=== PATIENT | female | born 1970 | race Two or more races ===

== ENCOUNTER 2024-05-16 10:35 | Day surgery (SDC) | payer BC, SELFPAY ==
--- NOTE | 2024-05-15 14:01 | PTCARENOTE ---
Unable to obtain ECG tracing from outside facility- ECG report scanned- reviewed by Dr. Lombardi- no additional interventions required.
[2024-05-16] VITALS (10 sets, daily range): BP systolic 105–128; BP diastolic 56–91; BMI 32.5
[2024-05-16] MEDS: NORMOSOL-R/PLASMALYTE-A 1000 IV (11:11)
[2024-05-16] MEDS: HEPARIN 5000 UNITS SC (11:19)
[2024-05-16] MEDS: DEMEROL 12.5 MG IV ×2 (16:09→16:20)
--- NOTE | 2024-05-16 16:33 | OR.RPT ---
Operative Report
Operative Report
Date of surgery: 05/16/2024
Surgeon: CONNER Cunningham MD
Preoperative diagnosis: Lipedema
Postoperative diagnosis: Same
Procedure: Suction assisted lipectomy to bilateral lower extremities
Anesthesia: General
EBL: 150 cc
Complications: None
Indications for procedure: Patient is a 53-year-old female with a working diagnosis of lipedema. She had previously undergone weight loss of approximately 200 pounds and had multiple body contouring procedures including bilateral thigh lift, prior
liposuction, bilateral brachioplasty and circumferential lower body lift as well as breast reduction. This was approximately 25 years ago and since then she noticed progressive painful accumulation of adipose in the bilateral lower extremities and
upper extremities as well as her trunk. She has a family history of lipedema and was given a formal diagnosis by medical doctor from physical medicine and rehabilitation. She met the requirements for medical necessity for insurance coverage of
treatment for her lipedema with liposuction and skin and adipose excision as indicated. A plan was made to address the lower extremities first. It was understood that this would be a treatment protocol requiring multiple stages to minimize
operative time, total lipo aspirate volume and risk of complications. Risk of the procedure reviewed at length including contour irregularities, skin irregularities and scarring, edema, recurrence, poor cosmetic outcome, skin redundancy. With
large volume liposuction, fluid shifts are possible. She understood these risks and desired to proceed
Procedure in detail: Patient was identified the preoperative area and the surgical site was confirmed to be the bilateral lower extremities. The relative areas of symptomatic adipose accumulation were marked out with the patient. For this stage
the procedure this included the anterior and posterior aspects of the bilateral lower extremities. All questions were answered and consents were confirmed. Patient was taken back to the operating room and intubated in the supine position. She was
then placed prone to allow for treatment of her posterior surfaces. Patient was prepped and draped in the usual sterile fashion using ChloraPrep solution. A timeout for patient safety was performed was confirmed that preoperative antibiotics have
been administered and subcu heparin had been administered and the abdomen prior to induction. SCDs were worn during induction. The procedure began with a series of poke holes for cannula access. 2L Tumescent solution consisting of 1 L of normal
saline with dilute lidocaine and epinephrine were evenly distributed over the bilateral anterior and posterior lower extremities. The remainder of the tumescent consisting of 1 L normal saline with 1 amp of epi. A total of 2.5 L of tumescent was
placed into the posterior surfaces of the lower extremities. Separation was then performed off suction. Throughout the procedure the SAF E protocol for liposuction was followed. After /pretunneling, aspiration commenced using a
combination of 4 and 5 mm cannulas. Focus was taken on the areas below the knees first. Endpoint for liposuction was pinch test with adequate reduction in volume. We proceeded to work her way up the legs ensuring adequate correction. Following
this, equilibration was performed off suction to prevent contour irregularities. The poke holes were closed with 5-0 fast and the patient was flipped to supine. She was reprepped and draped and the procedure commenced over the anterior lower
extremities. 2.5 L of tumescent was distributed over the anterior surface of the lower extremities in the SAF E protocol was followed once again. The tissue was or pretunneled off suction, followed by lipo aspiration and then fat
equilibration. The total Lipo aspirate was capped at approximately 5 L to minimize risks of fluid shifts and electrolyte imbalance. At the conclusion the case, the patient tolerated the procedure well and was performed out complication. She was
extubated taken the PACU for further care. ABD pads were placed over the sutured vocals and the bilateral lower extremities were wrapped with Dante bandages from the foot to the groin. Instructions were provided to shower after 24 hours and then
begin compression garments. All counts were correct.
--- NOTE | 2024-05-16 16:33 | W.IMMPOSTOP ---
Surgical Immed Post Op Note
-
Primary Surgeon: CONNER Cunningham MD
Assisting Surgeon:
Pre-op Diagnosis: Lipedema
Post-op Diagnosis: Same
Procedure Performed: Suction assisted lipectomy to bilateral lower extremities
Anesthesia Type: General
Specimen / Cultures: None
Estimated Blood Loss: 150 cc
Complications: None
Operative Findings: As expected
[2024-05-16] MEDS: DILAUDID 0.25 MG IV (16:49)
== END 2024-05-16 18:15 | disposition home or self-care (01) ==
LOC: SDS 10:35
PROVIDERS: ATTENDING PHYSICIAN Surgery Plastic and Reconstructive Surgery
DX: E88.1 Lipodystrophy, not elsewhere classified (principal); R60.9 Edema, unspecified; E88.2 Lipomatosis, not elsewhere classified; Z83.49 Family history of other endocrine, nutritional and metabolic diseases
CPT/HCPCS: 15879

== ENCOUNTER → 2024-05-21 15:21 | Outpatient (REF) | payer BC, SELFPAY | LOC: RAD 15:21 | PROVIDERS: ATTENDING PHYSICIAN Surgery Plastic and Reconstructive Surgery; FAMILY PHYSICIAN Family Medicine | DX: R60.0 Localized edema (principal) | CPT/HCPCS: 93970 ==

== ENCOUNTER 2024-09-05 06:18 | Day surgery (SDC) | payer BC, SELFPAY ==
[2024-09-05] VITALS (9 sets, daily range): BP systolic 0–127; BP diastolic 65–74; BMI 31.2
[2024-09-05] MEDS: NORMOSOL-R/PLASMALYTE-A 1000 IV (09:45)
--- NOTE | 2024-09-05 16:10 | W.IMMPOSTOP ---
Surgical Immed Post Op Note
-
Primary Surgeon: CONNER Cunningham MD
Assisting Surgeon: None
Pre-op Diagnosis: Lipedema
Post-op Diagnosis: Same
Procedure Performed: Suction assisted lipectomy lower extremities, suction assisted lipectomy of trunk, bilateral excision of excessive skin and subcutaneous tissues lower extremities
Anesthesia Type: General
Specimen / Cultures: None
Estimated Blood Loss: 30 cc
Complications: None
Operative Findings: As expected
--- NOTE | 2024-09-05 16:10 | OR.RPT ---
Operative Report
Operative Report
Date of surgery: 09/05/2024
Surgeon: CONNER Cunningham MD
Preoperative diagnosis: Lipedema
Postoperative diagnosis: Same
Procedure:
1. Suction assisted lipectomy lower extremity, bilateral
2. Suction assisted lipectomy of trunk, bilateral
3. Excision of skin and excess subcutaneous tissues, lower extremity, bilateral
Anesthesia: General
Complications: None
EBL: 30 cc
Indications for procedure: Patient is a 54-year-old female with a working diagnosis of lipedema. She has sought multiple consultations and medical care to establish the diagnosis. She started her process of treating the lipedema via serial suction
assisted lipectomy procedures in a staged fashion. She has previously undergone treatment of her bilateral lower extremities below the knee and in the posterior upper thigh. She had reached her limit for high-volume fat grafting requiring staged
treatment of the remainder of her legs. The diseased fat is also present in her bilateral lower trunk. Given the anticipated skin access created by the treatment, a plan was made for excision of redundant skin of the medial thighs. Prior Auth was
obtained and consents were confirmed. Risks include hematoma, DVT, skin contour irregularities, recurrent skin laxity, bleeding, abnormal scarring. Damage to nerves and other structures also discussed. She consented accordingly.
Procedure in detail: Patient was identified preoperatively and the surgical site was confirmed to be the bilateral lower extremities bilateral trunk. Patient was marked in the upright position and all questions were answered. Consents were
confirmed the patient taken back the operating placed upon the table. Anesthesia was induced and the patient was prepped and draped in the usual sterile fashion using ChloraPrep solution. A timeout for patient safety was performed was confirmed
that preoperative antibiotics had been administered and bilateral SCDs were placed. The procedure began tumescent solution consisting of dilute lidocaine with epinephrine and 1 L normal saline. This was distributed over the areas for treatment
localized to the lateral anterior and medial thighs as well as the bilateral lower trunk and anterior trunk. Appropriate amount of time was waited and then a SAF E liposuction protocol was followed. The total amount of Lipo aspirate was determined
based on clinical endpoint of skin pinch and not to exceed 5 L to prevent fluid shifts. Suction assisted lipectomy of the bilateral lower extremities was then performed through a series of protocols with a 15 blade. Attention was then drawn to the
trunk where suction assisted lipectomy of the trunk, bilateral was performed. A notable amount of skin laxity and excess tissue was present following the treatment of the bilateral lower extremities. As such a decision was made to commence with
excision of skin and excess subcutaneous tissues, lower extremity, bilateral. This was done in the standard medial thigh lift fashion. The patient had prior scars these were excised with the redundant tissue. Dissection continued Bovie
electrocautery and meticulous hemostasis was ensured. 15 [place] drains were left in the subcutaneous space prior to closure. Closure was performed with a series of 3-0 Monocryl's, INSORB staple, 4-0 Monocryl superficially. Patient tolerated
the procedure well, was performed out complication, all counts were correct at the end the case. She was extubated taken the PACU further care. The bilateral lower extremities were placed in compressive wraps.
[2024-09-05] MEDS: DILAUDID 0.5 MG IV ×2 (16:11→16:23)
[2024-09-05] MEDS: ROXICODONE 5 MG PO (17:19)
== END 2024-09-05 17:38 | disposition home or self-care (01) ==
LOC: SDS 06:18
PROVIDERS: ATTENDING PHYSICIAN Surgery Plastic and Reconstructive Surgery
DX: E88.1 Lipodystrophy, not elsewhere classified (principal); E88.2 Lipomatosis, not elsewhere classified
CPT/HCPCS: 15877; 15879; C1729

== ENCOUNTER 2024-11-21 06:15 | Day surgery (SDC) | payer BC, SELFPAY ==
[2024-11-21] VITALS (12 sets, daily range): BP systolic 108–134; BP diastolic 52–73; BMI 31.6
[2024-11-21] MEDS: NORMOSOL-R/PLASMALYTE-A 1000 IV (06:59)
[2024-11-21] MEDS: TYLENOL 1000 MG PO (07:01)
--- NOTE | 2024-11-21 11:56 | W.IMMPOSTOP ---
Surgical Immed Post Op Note
-
Primary Surgeon: CONNER Cunningham MD
Assisting Surgeon:
Pre-op Diagnosis: Lipedema
Post-op Diagnosis: Same
Procedure Performed: Bilateral excision of excess skin and subcutaneous tissue arm and forearm, bilateral suction assisted lipectomy of upper extremites
Anesthesia Type: GA
Specimen / Cultures: None
Estimated Blood Loss: 30cc
Complications: None
Operative Findings: As expected
--- NOTE | 2024-11-21 11:59 | OR.RPT ---
Operative Report
Operative Report
Date of surgery: 11/21/2024
Surgeon: CONNER Cunningham MD
Preoperative diagnosis:
1. Lipedema
2. Abnormal fat metabolism
3. Excess skin and subcutaneous tissue
Postoperative diagnosis: Same
Procedure:
1. Excision of skin and subcutaneous tissues bilateral upper arms
2. Excision of skin and subcutaneous tissues bilateral forearms
3. Suction assisted lipectomy of bilateral upper arms and forearms
Anesthesia: General
EBL: 30 cc
Specimens: None
Complications: None
Indication for procedure: Patient is a 54-year-old female with a working diagnosis of lipedema. She has undergone prior assessments with physical medicine and rehabilitation. She has previously tolerated prior suction assisted lipectomy and
excision of redundant skin and subcutaneous tissues. She was left with affected upper extremities having already treated the lower extremities. This involved painful fat in a circumferential distribution around the upper arm and into the forearm.
As a consequence there is excess skin subcutaneous tissues as well. As such a plan was made for suction assisted lipectomy of the bilateral upper extremities. This will be paired with excision of skin and subcutaneous tissues of the upper arm and
into the forearm. The scar burden was made aware to the patient, which was no surprise that she had a prior scar in the area. Risk of the procedure include contour abnormalities, fat necrosis, wound dehiscence and skin loss. She understood these
risk desire to proceed
Procedure in detail: Patient was identified preoperatively and the surgical site was confirmed to be the bilateral upper arms. The prior scars were marked for excision as well as a tentative marking for redundant skin following suction assisted
lipectomy. All questions were answered and consents were confirmed. Patient was taken back to the op room placed upon table. Anesthesia was induced and the patient was prepped and draped in usual sterile fashion using ChloraPrep solution.
Timeout for patient safety was performed was confirmed that preoperative antibiotics had been administered and bilateral SCDs were in place. Procedure began with the injection 1% lidocaine with epinephrine in the proposed protocols for suction
assisted lipectomy. Tumescent solution consisting 1% sent lidocaine 50 cc and 1 amp of epi and 1 L normal saline was distributed in the subcutaneous tissues of bilateral upper extremities. A total of 2 L was used. Following an SAF E liposuction
protocol, suction assisted lipectomy was first performed just by off suction followed by aspiration and then fat equilibration. Suction assisted lipectomy occurred in the upper arm as well as the forearm. A total of 1 L was taken off of
each side approximately. Following this, the prior scar was marked for excision. This was performed first anteriorly followed by dissection in the lipo dissected plane to protect important neurovascular structures deep near the fascia. The amount
of redundant tissue was then tailor tacked to ensure tension-free closure. As such, excision of skin and subcutaneous tissues of the bilateral upper arms and bilateral forearms was performed using Bovie electrocautery. This was first performed in
the forearm and then followed up into the arm slightly into the lateral chest wall. Meticulous hemostasis was ensured. There was not appreciable space and no drain was left. The wound was closed in layers using an INSORB stapler followed by
3-0 Monocryl sutures. Prineo dressing was applied bilaterally. Patient tolerated the procedure well and was performed out complication. All counts were correct at the end the case.
[2024-11-21] MEDS: DILAUDID 0.25 MG IV ×2 (12:35→13:02)
== END 2024-11-21 14:17 | disposition home or self-care (01) ==
LOC: SDS 06:15
PROVIDERS: ATTENDING PHYSICIAN Surgery Plastic and Reconstructive Surgery
DX: E88.2 Lipomatosis, not elsewhere classified (principal); E71.30 Disorder of fatty-acid metabolism, unspecified; L98.7 Excessive and redundant skin and subcutaneous tissue
CPT/HCPCS: 15878; C1729

== ENCOUNTER 2025-03-06 05:59 | Day surgery (SDC) | payer BC, SELFPAY ==
[2025-02-18 08:28] VITALS: BMI 30.3
[2025-02-18 11:55] LABS: Hematocrit 37.2 % (37.0-47.0); Hemoglobin 12.4 g/dL (12.0-16.0); Mean Corp Hgb Conc. 33.3 g/dL (33.0-37.0); Mean Corpuscular Volume 90.7 fL (81.0-99.0); Nucleated Red Blood Cells % 0 %; Platelet Count 282 10^3/uL (130-400); Red Cell Dist. Width 12.7 % (11.5-14.5)
[2025-02-18 12:29] LABS: ALT (SGPT) 16 U/L (0-35); AST (SGOT) 24 U/L (14-36); Albumin 3.9 g/dl (3.5-5.0); Alkaline Phosphatase 46 U/L (38-126); Blood Urea Nitrogen 11 mg/dl (7-17); Calcium 8.8 mg/dl (8.4-10.2); Carbon Dioxide 29 mmol/L (22-30); Chloride 104 mmol/L (98-107); Estimated Creatinine Clearance 118 ml/min; Glucose 78 mg/dl (70-99); Potassium 4.3 mmol/L (3.5-5.1); Sodium 136 mmol/L (135-145); Total Protein 6.2 g/dl (6.3-8.2); eGFR > 60.00
[2025-03-06] VITALS (10 sets, daily range): BP systolic 108–135; BP diastolic 67–86; BMI 30.3
[2025-03-06] MEDS: TYLENOL 1000 MG PO (06:45)
[2025-03-06] MEDS: NORMOSOL-R/PLASMALYTE-A 1000 IV (06:45)
[2025-03-06] MEDS: SUBLIMAZE 25 MCG IV (11:58)
--- NOTE | 2025-03-06 12:46 | W.IMMPOSTOP ---
Surgical Immed Post Op Note
-
Primary Surgeon: CONNER Cunningham MD
Assisting Surgeon:
Pre-op Diagnosis: Lipedema
Post-op Diagnosis: Same
Procedure Performed: Suction assisted lipectomy of trunk
Anesthesia Type: General
Specimen / Cultures: None
Estimated Blood Loss: 30 cc
Complications: None
Operative Findings: As expected
--- NOTE | 2025-03-06 12:46 | OR.RPT ---
Operative Report
Operative Report
Date of surgery: 03/06/2025
Surgeon: CONNER Cunningham MD
Preoperative diagnosis:
1. Lipedema
2. Lipomatosis, unspecified
3. Metabolic derangement of fat
Postoperative diagnosis: Same
Procedure:
1. Suction assisted lipectomy of trunk, circumferential
Anesthesia: General
Complications: None
EBL: 30 cc
Indications for procedure: Patient is a 54-year-old female well-known to [facility] for a diagnosis of [facility]. She was referred to [facility] for surgical management. She had failed other management forms. Diagnosis provided by physical medicine and
rehabilitation provider. In pursuit of treatment for her abnormal distribution of fat in the lower extremities upper extremities and trunk, she was referred by her insurance company to [facility] for consideration of surgical management. Prior
authorizations were obtained and she was approved for suction assisted lipectomy of the bilateral lower extremities, upper extremities, and trunk. A plan was made for staging these procedures to avoid the risk of high-volume lipo suction. As such
she previously treated her bilateral lower extremities and her bilateral upper extremities. She returned for treatment of her trunk. Her symptomatic areas included the bilateral posterior trunk bilateral flanks and anterior abdomen. Symptoms
included painful nodular fat, easy bruising, overwhelming sense of heaviness. She understood the risks of suction assisted lipectomy as she had previously undergone this procedure. These risk include but are not limited to damage to deeper
structures, skin contour irregularity, skin excess, fibrosis, recurrence, surgically induced edema, bleeding, infection, need for repeat procedure. We also discussed the risk of DVT and PE. She expressed understanding of th these risks and desired
to proceed.
Procedure in detail: Patient was identified preoperatively and the surgical site was confirmed to be the circumferential trunk. Consents were confirmed and all questions were answered. The relative areas of fat distribution were marked out
accordingly. Conversation was had about sparing the anterior abdomen for concerns over skin excess that may result. She elected to proceed with treatment of the anterior abdomen as well. She was taken back to the operating room and intubated
supine. She was then placed in the prone position with appropriate padding. She was then prepped and draped in the usual sterile fashion using ChloraPrep solution. Timeout for patient safety was performed was confirmed that preoperative
antibiotics have been administered and bilateral SCDs were in place. Procedure began with the injection of tumescent solution consisting of 1 L normal saline with 1% lidocaine and 1 amp of epinephrine. To stay within recommended lidocaine dosage,
additional tumescent was provided with 1 L of normal saline with 1 amp of epi. A total of 3 L was distributed over the posterior back. A SAF E liposuction protocol was followed. This consisted of tumescent followed by separation followed by
aspiration and then fat equilibration. This was performed with 5 mm 4 mm cannulas in the subcutaneous plane. Following adequate contour, a total of approximately 2.5 L was removed. Access sites were then closed with 4-0 Monocryl deep followed by
5-0 fast superficially. The patient was then placed in the supine position and again prepped and draped in the usual sterile fashion. An additional 3 L of dilute tumescent solution was distributed over the anterior abdomen and bilateral flanks.
The SAF E protocol was again followed. An additional 2.5 L was removed from the anterior abdomen and bilateral flanks. An adequate contour had been achieved following. At this point the procedure was concluded to prevent fluid shifts from
additional volumes of lipo aspirate. Patient tolerated the procedure well and was performed out complication. All counts were correct at the end the case. The wounds were dressed and compressive garment was applied. She was extubated taken the
PACU for further care.
== END 2025-03-06 13:35 | disposition home or self-care (01) ==
LOC: SDS 05:59
PROVIDERS: ATTENDING PHYSICIAN Surgery Plastic and Reconstructive Surgery
DX: E71 Disorders of branched-chain amino-acid metabolism and fatty-acid metabolism (principal); E78.9 Disorder of lipoprotein metabolism, unspecified; E88.10 Lipodystrophy, unspecified; E88.2 Lipomatosis, not elsewhere classified
CPT/HCPCS: 15877; 80053; 81003; 81015; 84703; 85025; 93005